=== PATIENT | female | born 1950 | race Caucasian/White ===

== ENCOUNTER 2018-12-07 08:29 | Day surgery (SDC) | payer OTHER, BC ==
[2018-12-04 10:24] VITALS: BMI 19.9
[2018-12-07 10:55] VITALS: BP 118/78; PULSE 89; TEMP 98.5
== END 2018-12-07 10:50 | disposition home or self-care (01) ==
LOC: FASU-ENDO 08:29
PROVIDERS: ATTEND Internal Medicine Gastroenterology
PROC: 0DJD8ZZ Inspection of Lower Intestinal Tract, Via Natural or Artificial Opening Endoscopic (ICD-10-PCS; principal; 2018-12-07 09:56)
DX: Z12.11 Encounter for screening for malignant neoplasm of colon (principal); Z80.0 Family history of malignant neoplasm of digestive organs

== ENCOUNTER 2023-04-30 08:14 | Day surgery (SDC) | payer OTHER, BC ==
[2023-04-29 11:51] VITALS: BMI 20.2
[2023-04-30] MEDS: CIPROFLOXACIN 0.3% EYE DROPS 5 ML BOTTLE ONE ×6 (07:20→09:15)
[2023-04-30] MEDS: PHENYLEPHRINE 2.5% OPTHALMIC DROP 2ML BOTTLE ONE ×6 (07:20→09:15)
[2023-04-30] MEDS: CYCLOPENTOLATE 2% OPHTH SOLN 2 ML BOTTLE ONE ×6 (07:20→09:15)
[2023-04-30] MEDS: TROPICAMIDE 1% OPHTH SOLN 15 ML BOTTLE ONE ×6 (07:20→09:15)
[2023-04-30] MEDS ORDERED: LIDOCAINE 1% P/F 10 MG/ML VIAL ONE (08:44)
[2023-04-30] MEDS ORDERED: TETRACAINE 0.5% OPHTH SOLN 2 ML BOTTLE ONE (08:45)
[2023-04-30] MEDS ORDERED: NEO/POLYMYX B SULF/DEXAMETH OPHTHALMIC 5ML BOTTLE ONE (08:45)
[2023-04-30] MEDS ORDERED: CARBACHOL 0.01% INTRA-OCULAR 1.5 ML VIAL ONE (08:45)
[2023-04-30] MEDS ORDERED: BSS (NA/CA/MG/K) BALANCED SALT SOLUTION OPHTH SOLN 15 ML BOTTLE ONE (08:45)
[2023-04-30 09:07] VITALS: TEMP 97.7
[2023-04-30] MEDS ORDERED: ONDANSETRON 4 MG/2 ML VIAL ONE (09:34)
[2023-04-30] MEDS ORDERED: MIDAZOLAM HCL 2 MG/2 ML SINGLE DOSE VIAL ONE (09:34)
[2023-04-30 10:31] VITALS: PULSE 81; RESP 18
[2023-04-30 10:56] VITALS: BP 131/74
== END 2023-04-30 10:58 | disposition home or self-care (01) ==
LOC: FASU 08:14
PROVIDERS: ATTEND Ophthalmology
PROC: 08RK3JZ Replacement of Left Lens with Synthetic Substitute, Percutaneous Approach (ICD-10-PCS; principal; 2023-04-30 09:55)
DX: H26.8 Other specified cataract (principal)
CPT/HCPCS: 66984; V2632

== ENCOUNTER 2023-07-02 09:06 | Day surgery (SDC) | payer OTHER, BC ==
[2023-06-25 15:23] VITALS: BMI 20.2
[2023-07-02] MEDS: CIPROFLOXACIN 0.3% EYE DROPS 5 ML BOTTLE ONE (09:25)
[2023-07-02] MEDS: TROPICAMIDE 1% OPHTH SOLN 15 ML BOTTLE ONE (09:25)
[2023-07-02] MEDS: PHENYLEPHRINE 2.5% OPTHALMIC DROP 2ML BOTTLE ONE (09:25)
[2023-07-02] MEDS: CYCLOPENTOLATE 2% OPHTH SOLN 2 ML BOTTLE ONE (09:25)
[2023-07-02] MEDS ORDERED: MIDAZOLAM HCL 2 MG/2 ML SINGLE DOSE VIAL ONE ×2 (10:43→11:32)
[2023-07-02] MEDS ORDERED: CARBACHOL 0.01% INTRA-OCULAR 1.5 ML VIAL ONE (11:00)
[2023-07-02] MEDS ORDERED: NEO/POLYMYX B SULF/DEXAMETH OPHTHALMIC 5ML BOTTLE ONE (11:00)
[2023-07-02] MEDS ORDERED: TETRACAINE 0.5% OPHTH SOLN 2 ML BOTTLE ONE (11:00)
[2023-07-02] MEDS ORDERED: BSS (NA/CA/MG/K) BALANCED SALT SOLUTION OPHTH SOLN 15 ML BOTTLE ONE (11:00)
[2023-07-02] MEDS ORDERED: LIDOCAINE 1% P/F 10 MG/ML VIAL ONE (11:00)
[2023-07-02 12:00] VITALS: TEMP 97.4
[2023-07-02 12:17] VITALS: BP 118/68; PULSE 76; RESP 18
== END 2023-07-02 12:27 | disposition home or self-care (01) ==
LOC: FASU 09:06
PROVIDERS: ATTEND Ophthalmology
PROC: 08RJ3JZ Replacement of Right Lens with Synthetic Substitute, Percutaneous Approach (ICD-10-PCS; principal; 2023-07-02 11:24)
DX: H26.8 Other specified cataract (principal)
CPT/HCPCS: 66984; V2632